=== PATIENT | male | born 1965 | race Caucasian/White ===

== ENCOUNTER 2021-11-14 03:12 | Emergency (ER) | payer OTHER | END 2021-11-14 04:15 | disposition home or self-care (01) | LOC: FER 03:12 | DX: S01.402A Unspecified open wound of left cheek and temporomandibular area, initial encounter (principal); F17.200 Nicotine dependence, unspecified, uncomplicated; I25.10 Atherosclerotic heart disease of native coronary artery without angina pectoris; I10 Essential (primary) hypertension; X58.XXXA Exposure to other specified factors, initial encounter | CPT/HCPCS: 99282 ==